=== PATIENT | female | born 1955 | race Caucasian/White ===

== ENCOUNTER 2022-04-01 07:17 | Emergency (ER) | payer OTHER ==
[~2022-04-01] VITALS: Ht 157.5 cm; Wt 72.6 kg
[2022-04-01] MEDS ORDERED: LIDOCAINE VISCOUS 2% 15ML UD MT ONE (08:00)
[2022-04-01] MEDS ORDERED: cefTRIAXone SOD 1,000 MG VL IM ONE (08:00)
[2022-04-01] MEDS ORDERED: LIDOCAINE VISCOUS 2% 15ML UD PO ONE (08:00)
[2022-04-01 08:09] VITALS: BP 146/79
[2022-04-01] MEDS ORDERED: LIDO2SOL23 MT (08:26)
[2022-04-01] MEDS ORDERED: AZIT200S47 PO (08:26)
== END 2022-04-01 08:41 | disposition home or self-care (01) ==
LOC: ER 07:17
DX: J03.90 Acute tonsillitis, unspecified (principal); I10 Essential (primary) hypertension; Z90.49 Acquired absence of other specified parts of digestive tract; Z90.89 Acquired absence of other organs; Z88.0 Allergy status to penicillin
CPT/HCPCS: 96372; 99283; J0696